=== PATIENT | male | born 1980 ===

== ENCOUNTER 2023-07-22 20:54 | Emergency (ER) | payer BC, MEDICAID ==
[2023-07-22 21:08] VITALS: BP 147/86; PULSE 78
[2023-07-22] MEDS ORDERED: Lidocaine 4% 1 each Patch TOP PRN (21:09)
[2023-07-22] MEDS ORDERED: Acetaminophen/HYDROcodone 325-5 MG Tab PO ONE (21:09)
[2023-07-22] MEDS ORDERED: methylPREDNISolone Sodium Succinate 125 MG/2 ML SDV IM ONE (21:09)
[2023-07-22 21:38] LABS: APPEARANCE,URINE CLEAR; BILIRUBIN,URINE NEGATIVE (NEGATIVE); COLOR,URINE YELLOW; GLUCOSE,URINE NEGATIVE (NEGATIVE); KETONES,URINE NEGATIVE (NEGATIVE); LEUKOCYTE ESTERASE,URINE NEGATIVE (NEGATIVE); NITRITE,URINE NEGATIVE (NEGATIVE); OCCULT BLOOD,URINE MODERATE (NEGATIVE); PH,URINE 6.5 (5.0-8.0); PROTEIN,URINE 100 mg/dL (NEGATIVE); UROBILINOGEN,URINE 0.2 EU/dL (<2.0)
[2023-07-22 22:07] LABS: BACTERIA,URINE NOT SEEN (NEGATIVE); EPITHELIAL CELLS,URINE RARE (NONE-FEW); WBC,URINE 0-2 (0-5/HPF)
[2023-07-22] MEDS ORDERED: Tamsulosin 0.4 MG Cap.ER PO ONE (22:09)
== END 2023-07-22 22:40 | disposition home or self-care (01) ==
LOC: MW.ED 20:54
DX: M54.50 Low back pain, unspecified (principal); R31.9 Hematuria, unspecified; I10 Essential (primary) hypertension; Z79.899 Other long term (current) drug therapy; Z88.0 Allergy status to penicillin
CPT/HCPCS: 81001; 96372; 99283; A9270; J2930; 99284